=== PATIENT | male | born 1960 | race Caucasian/White ===

== ENCOUNTER 2024-06-26 14:54 | Outpatient (CLI) | payer BC, SELFPAY ==
[2024-06-26 14:09] LABS: Abs Immature Grans 0.17 10^3/uL (0.0-0.06); Absolute Basophil Count 0.04 10^3/uL (0.0-0.2); Absolute Lymphocyte Count 0.77 10^3/uL (1.2-3.4); Absolute Monocyte Count 1.39 10^3/uL (0.1-0.8); Basophils % 0.3 %; Eosinophils % 0.7 %; HCT 43.5 % (40.0-50.0); HGB 14.2 g/dL (13.5-17.5); Immature Grans % 1.2 %; Lymphocytes % 5.4 %; MCH 30.6 pg (27.0-33.0); MCHC 32.6 % (32.0-36.0); MCV 94 fL (80-95); MPV 9.7 fL (8.0-11.0); Monocytes % 9.7 %; Neutrophils % 82.7 %; Platelet Count 157 10^3/uL (130-400); RBC 4.64 10^6/uL (4.36-5.78); RDW 14.9 % (11.8-14.1); RDW-SD 50.9 fL; WBC 14.32 10^3/uL (4.4-10.8)
[2024-06-26 14:10] LABS: Absolute Neutrophil Count 11.84 10^3/uL (1.2-6.7)
[2024-06-26 14:29] LABS: ALT 72 U/L (16-63); AST 18 U/L (15-37); Albumin 3.2 g/dL (3.4-5.0); Alkaline Phosphatase 107 U/L (46-116); Anion Gap 6.8 mmol/L (3-11); BUN 32 mg/dL (7-18); Bilirubin, Total 0.4 mg/dL (0.2-1.0); CO2 30.2 mmol/L (21.0-32.0); Calcium 9.2 mg/dL (8.5-10.1); Chloride 107 mmol/L (98-107); Estimated GFR 84.05 (mL/min/1.73m2); Glucose 98 mg/dL (74-106); Potassium 4.5 mmol/L (3.5-5.1); Sodium 144 mmol/L (136-145); Total Protein 6.3 g/dL (6.4-8.2)
[2024-06-27 09:22] LABS: HBs Antibody, Quant <3.1 mIU/mL (See Note); Hepatitis B Surface Ab Negative (See Note)
[2024-06-27 09:53] LABS: Hepatitis C Ab w Rflx HCV PCR Negative (Negative)
[2024-06-27 10:09] LABS: Hep B Core Antibody Negative (Negative)
[2024-06-27 13:32] LABS: Hepatitis B Surface Ag Negative (Negative)
== END 2024-06-26 14:55 | disposition home or self-care (01) ==
LOC: LBO 14:55
PROVIDERS: Visit Provider Internal Medicine Medical Oncology
DX: C71.3 Malignant neoplasm of parietal lobe (principal)
CPT/HCPCS: 36415; 80053; 86704; 86706; 86803; 87340; 85025

== ENCOUNTER 2024-07-17 14:16 | Outpatient (CLI) | payer BC, SELFPAY ==
[2024-07-17 13:49] LABS: Abs Immature Grans 0.15 10^3/uL (0.0-0.06); Absolute Basophil Count 0.03 10^3/uL (0.0-0.2); Absolute Eosinophil Count 0.05 10^3/uL (0.0-0.7); Absolute Lymphocyte Count 1.21 10^3/uL (1.2-3.4); Absolute Monocyte Count 1.19 10^3/uL (0.1-0.8); Absolute Neutrophil Count 6.01 10^3/uL (1.2-6.7); Basophils % 0.3 %; Eosinophils % 0.6 %; HCT 39.9 % (40.0-50.0); HGB 13.3 g/dL (13.5-17.5); Immature Grans % 1.7 %; MCH 30.2 pg (27.0-33.0); MCHC 33.3 % (32.0-36.0); MCV 91 fL (80-95); MPV 9.6 fL (8.0-11.0); Monocytes % 13.8 %; Neutrophils % 69.6 %; Platelet Count 318 10^3/uL (130-400); RDW 13.5 % (11.8-14.1); RDW-SD 45.3 fL; WBC 8.64 10^3/uL (4.4-10.8)
[2024-07-17 14:05] LABS: ALT 26 U/L (16-63); AST 16 U/L (15-37); Albumin 3.4 g/dL (3.4-5.0); Alkaline Phosphatase 153 U/L (46-116); Anion Gap 2.1 mmol/L (3-11); BUN 18 mg/dL (7-18); Bilirubin, Total 0.2 mg/dL (0.2-1.0); CO2 32.9 mmol/L (21.0-32.0); Calcium 9.4 mg/dL (8.5-10.1); Chloride 105 mmol/L (98-107); Estimated GFR 84.05 (mL/min/1.73m2); Glucose 122 mg/dL (74-106); Potassium 3.9 mmol/L (3.5-5.1); Sodium 140 mmol/L (136-145); Total Protein 7.3 g/dL (6.4-8.2)
== END 2024-07-17 14:17 | disposition home or self-care (01) ==
LOC: LBO 14:18
PROVIDERS: Visit Provider Internal Medicine Medical Oncology
DX: C71.3 Malignant neoplasm of parietal lobe (principal)
CPT/HCPCS: 36415; 80053; 85025

== ENCOUNTER 2024-07-24 15:26 | Outpatient (CLI) | payer BC, SELFPAY ==
[2024-07-24 16:30] LABS: Abs Immature Grans 0.09 10^3/uL (0.0-0.06); Absolute Basophil Count 0.06 10^3/uL (0.0-0.2); Absolute Eosinophil Count 0.06 10^3/uL (0.0-0.7); Absolute Lymphocyte Count 1.58 10^3/uL (1.2-3.4); Absolute Monocyte Count 1.14 10^3/uL (0.1-0.8); Absolute Neutrophil Count 7.32 10^3/uL (1.2-6.7); Basophils % 0.6 %; Eosinophils % 0.6 %; HCT 45.3 % (40.0-50.0); HGB 14.7 g/dL (13.5-17.5); Immature Grans % 0.9 %; Lymphocytes % 15.4 %; MCH 29.6 pg (27.0-33.0); MCHC 32.5 % (32.0-36.0); MCV 91 fL (80-95); Monocytes % 11.1 %; Neutrophils % 71.4 %; Platelet Count 303 10^3/uL (130-400); RBC 4.97 10^6/uL (4.36-5.78); RDW 13.6 % (11.8-14.1); RDW-SD 45.3 fL; WBC 10.25 10^3/uL (4.4-10.8)
[2024-07-24 17:01] LABS: ALT 46 U/L (16-63); AST 26 U/L (15-37); Albumin 4.1 g/dL (3.4-5.0); Alkaline Phosphatase 154 U/L (46-116); Anion Gap 5.3 mmol/L (3-11); BUN 21 mg/dL (7-18); Bilirubin, Total 0.3 mg/dL (0.2-1.0); CO2 28.7 mmol/L (21.0-32.0); CREATININE 1.2 mg/dL (0.70-1.30); Calcium 9.8 mg/dL (8.5-10.1); Chloride 105 mmol/L (98-107); Estimated GFR 67.53 (mL/min/1.73m2); Glucose 106 mg/dL (74-106); Sodium 139 mmol/L (136-145); Total Protein 7.9 g/dL (6.4-8.2)
== END 2024-07-24 15:27 | disposition home or self-care (01) ==
PROVIDERS: Visit Provider Internal Medicine Medical Oncology
DX: C71.3 Malignant neoplasm of parietal lobe (principal)
CPT/HCPCS: 36415; 80053; 85025

== ENCOUNTER 2024-07-31 14:48 | Outpatient (CLI) | payer BC, SELFPAY ==
[2024-07-31 15:03] LABS: Abs Immature Grans 0.03 10^3/uL (0.0-0.06); Absolute Basophil Count 0.04 10^3/uL (0.0-0.2); Absolute Eosinophil Count 0.08 10^3/uL (0.0-0.7); Absolute Lymphocyte Count 1.43 10^3/uL (1.2-3.4); Absolute Monocyte Count 1.08 10^3/uL (0.1-0.8); Absolute Neutrophil Count 6.98 10^3/uL (1.2-6.7); Basophils % 0.4 %; Eosinophils % 0.8 %; HCT 39.9 % (40.0-50.0); HGB 13.5 g/dL (13.5-17.5); Immature Grans % 0.3 %; Lymphocytes % 14.8 %; MCH 30.8 pg (27.0-33.0); MCHC 33.8 % (32.0-36.0); MCV 91 fL (80-95); MPV 9.8 fL (8.0-11.0); Monocytes % 11.2 %; Neutrophils % 72.5 %; Platelet Count 188 10^3/uL (130-400); RBC 4.38 10^6/uL (4.36-5.78); RDW 14.3 % (11.8-14.1); RDW-SD 47.5 fL; WBC 9.64 10^3/uL (4.4-10.8)
[2024-07-31 15:38] LABS: ALT 39 U/L (16-63); AST 21 U/L (15-37); Albumin 3.8 g/dL (3.4-5.0); Alkaline Phosphatase 124 U/L (46-116); Anion Gap 5.2 mmol/L (3-11); BUN 22 mg/dL (7-18); Bilirubin, Total 0.3 mg/dL (0.2-1.0); CO2 29.8 mmol/L (21.0-32.0); CREATININE 0.9 mg/dL (0.70-1.30); Calcium 9.3 mg/dL (8.5-10.1); Chloride 107 mmol/L (98-107); Estimated GFR 95.37 (mL/min/1.73m2); Glucose 112 mg/dL (74-106); Potassium 4.2 mmol/L (3.5-5.1); Sodium 142 mmol/L (136-145); Total Protein 7.2 g/dL (6.4-8.2)
== END 2024-07-31 14:49 | disposition home or self-care (01) ==
LOC: LBO 14:48
DX: C71.3 Malignant neoplasm of parietal lobe (principal)
CPT/HCPCS: 36415; 80053; 85025

== ENCOUNTER 2024-08-07 15:22 | Outpatient (CLI) | payer BC, SELFPAY ==
[2024-08-07 15:05] LABS: Abs Immature Grans 0.03 10^3/uL (0.0-0.06); Absolute Basophil Count 0.06 10^3/uL (0.0-0.2); Absolute Eosinophil Count 0.17 10^3/uL (0.0-0.7); Absolute Monocyte Count 0.82 10^3/uL (0.1-0.8); Absolute Neutrophil Count 5.54 10^3/uL (1.2-6.7); Basophils % 0.7 %; Eosinophils % 2.1 %; HCT 42.8 % (40.0-50.0); HGB 14.3 g/dL (13.5-17.5); Immature Grans % 0.4 %; Lymphocytes % 17.5 %; MCH 30.1 pg (27.0-33.0); MCHC 33.4 % (32.0-36.0); MCV 90 fL (80-95); MPV 9.9 fL (8.0-11.0); Monocytes % 10.2 %; Neutrophils % 69.1 %; Platelet Count 223 10^3/uL (130-400); RBC 4.75 10^6/uL (4.36-5.78); RDW-SD 46.5 fL; WBC 8.02 10^3/uL (4.4-10.8)
[2024-08-07 15:20] LABS: ALT 37 U/L (16-63); AST 24 U/L (15-37); Albumin 3.9 g/dL (3.4-5.0); Alkaline Phosphatase 128 U/L (46-116); Anion Gap 6.1 mmol/L (3-11); BUN 16 mg/dL (7-18); Bilirubin, Total 0.3 mg/dL (0.2-1.0); CO2 26.9 mmol/L (21.0-32.0); CREATININE 1.1 mg/dL (0.70-1.30); Calcium 9.2 mg/dL (8.5-10.1); Chloride 106 mmol/L (98-107); Estimated GFR 74.96 (mL/min/1.73m2); Glucose 146 mg/dL (74-106); Potassium 4.1 mmol/L (3.5-5.1); Sodium 139 mmol/L (136-145); Total Protein 7.4 g/dL (6.4-8.2)
== END 2024-08-07 15:23 | disposition home or self-care (01) ==
LOC: LBO 15:23
DX: C71.3 Malignant neoplasm of parietal lobe (principal)
CPT/HCPCS: 36415; 80053; 85025

== ENCOUNTER 2024-08-14 14:22 | Outpatient (CLI) | payer BC, SELFPAY ==
[2024-08-14 14:27] LABS: Abs Immature Grans 0.03 10^3/uL (0.0-0.06); Absolute Basophil Count 0.03 10^3/uL (0.0-0.2); Absolute Eosinophil Count 0.12 10^3/uL (0.0-0.7); Absolute Lymphocyte Count 0.95 10^3/uL (1.2-3.4); Absolute Monocyte Count 0.92 10^3/uL (0.1-0.8); Absolute Neutrophil Count 5.46 10^3/uL (1.2-6.7); Basophils % 0.4 %; Eosinophils % 1.6 %; HCT 44.1 % (40.0-50.0); HGB 14.4 g/dL (13.5-17.5); Immature Grans % 0.4 %; Lymphocytes % 12.6 %; MCHC 32.7 % (32.0-36.0); MCV 92 fL (80-95); MPV 9.5 fL (8.0-11.0); Monocytes % 12.3 %; Neutrophils % 72.7 %; Platelet Count 225 10^3/uL (130-400); RDW 13.9 % (11.8-14.1); RDW-SD 47.5 fL; WBC 7.51 10^3/uL (4.4-10.8)
[2024-08-14 15:04] LABS: ALT 48 U/L (16-63); AST 23 U/L (15-37); Alkaline Phosphatase 125 U/L (46-116); Anion Gap 5.7 mmol/L (3-11); BUN 19 mg/dL (7-18); Bilirubin, Total 0.3 mg/dL (0.2-1.0); CO2 30.3 mmol/L (21.0-32.0); CREATININE 0.9 mg/dL (0.70-1.30); Calcium 9.2 mg/dL (8.5-10.1); Chloride 107 mmol/L (98-107); Estimated GFR 95.37 (mL/min/1.73m2); Glucose 110 mg/dL (74-106); Potassium 4.1 mmol/L (3.5-5.1); Sodium 143 mmol/L (136-145); Total Protein 7.5 g/dL (6.4-8.2)
== END 2024-08-14 14:23 | disposition home or self-care (01) ==
LOC: LBO 14:24
DX: C71.3 Malignant neoplasm of parietal lobe (principal)
CPT/HCPCS: 36415; 80053; 85025

== ENCOUNTER 2024-08-21 14:18 | Outpatient (CLI) | payer BC, SELFPAY ==
[2024-08-21 14:08] LABS: Abs Immature Grans 0.02 10^3/uL (0.0-0.06); Absolute Basophil Count 0.03 10^3/uL (0.0-0.2); Absolute Eosinophil Count 0.07 10^3/uL (0.0-0.7); Absolute Lymphocyte Count 0.83 10^3/uL (1.2-3.4); Absolute Monocyte Count 0.94 10^3/uL (0.1-0.8); Absolute Neutrophil Count 4.94 10^3/uL (1.2-6.7); Basophils % 0.4 %; HCT 43.6 % (40.0-50.0); HGB 14.5 g/dL (13.5-17.5); Immature Grans % 0.3 %; Lymphocytes % 12.2 %; MCH 30.3 pg (27.0-33.0); MCHC 33.3 % (32.0-36.0); MCV 91 fL (80-95); MPV 9.8 fL (8.0-11.0); Monocytes % 13.8 %; Neutrophils % 72.3 %; Platelet Count 215 10^3/uL (130-400); RBC 4.79 10^6/uL (4.36-5.78); RDW 13.8 % (11.8-14.1); RDW-SD 46.5 fL; WBC 6.83 10^3/uL (4.4-10.8)
[2024-08-21 15:00] LABS: ALT 46 U/L (16-63); AST 22 U/L (15-37); Albumin 3.9 g/dL (3.4-5.0); Alkaline Phosphatase 133 U/L (46-116); Anion Gap 5.7 mmol/L (3-11); BUN 22 mg/dL (7-18); Bilirubin, Total 0.3 mg/dL (0.2-1.0); CO2 30.3 mmol/L (21.0-32.0); Calcium 9.3 mg/dL (8.5-10.1); Chloride 106 mmol/L (98-107); Estimated GFR 84.05 (mL/min/1.73m2); Glucose 116 mg/dL (74-106); Potassium 4.1 mmol/L (3.5-5.1); Sodium 142 mmol/L (136-145); Total Protein 7.4 g/dL (6.4-8.2)
== END 2024-08-21 14:19 | disposition home or self-care (01) ==
LOC: LBO 14:18
DX: C71.3 Malignant neoplasm of parietal lobe (principal)
CPT/HCPCS: 36415; 80053; 85025